=== PATIENT | male | born 1955 | race Caucasian/White ===

== ENCOUNTER 2023-10-27 08:28 | Emergency (ER) | payer OTHER ==
[~2023-10-27] VITALS: Ht 188 cm; Wt 101.6 kg
[~2023-10-27 08:28] MED LIST: ASPI81CH43 GT; PRIM50TA27 OR
[2023-10-27 08:57] VITALS: BP 150/86; PULSE 77; TEMP 97.6
[2023-10-27] MEDS: DexAMETHasone SOD PHOS 10MG/1ML VIAL INJ IM ONE (09:10)
[2023-10-27] MEDS: ALBUTEROL SULF 2.5 MG/0.5ML(0.5%) NEB SOLN NEB ONE (09:23)
[2023-10-27] MEDS: IPRATROPIUM BROM 0.5 MG/2.5ML INH SOL NEB ONE (09:23)
[2023-10-27 09:26] VITALS: RESP 16; O2SAT 95
[2023-10-27] MEDS ORDERED: AUG875T PO (09:55)
== END 2023-10-27 10:03 | disposition home or self-care (01) ==
LOC: ER 08:28
DX: J32.9 Chronic sinusitis, unspecified (principal); J44.9 Chronic obstructive pulmonary disease, unspecified
CPT/HCPCS: 71046; 94640; 96372; 99283; J1100; J7644

== ENCOUNTER 2024-04-09 13:31 | Inpatient (IN) | payer OTHER ==
[~2024-04-09] VITALS: Ht 188 cm; Wt 105.0 kg
[~2024-04-09 13:31] MED LIST changes: +AUG875T PO
[2024-04-09 14:28] LABS: Basophils # (auto) 0 10 ^3/uL (0-0.2); Eosinophils # (auto) 0.1 10 ^3/uL (0-0.8); Hemoglobin 13.7 g/dL (13.5-17.5); Monocytes # (auto) 0.3 10 ^3/uL (0-1.3); Neutrophils # (auto) 2.8 10 ^3/uL (1.6-8.6)
[2024-04-09 14:30] LABS: Basophils % (auto) 0.6 % (0.0-2.0); Eosinophils % (auto) 3.2 % (0.0-7.0); Hematocrit 37.5 % (41.0-53.0); Lymphocytes # (auto) 0.9 10 ^3/uL (0.4-5.4); Lymphocytes % (auto) 21.5 % (10.0-50.0); Mean Corpuscular Hemoglobin 35.3 pg (28.0-32.0); Mean Corpuscular Hgb Conc. 36.4 g/dL (32.0-36.0); Mean Corpuscular Volume 96.9 fL (80.0-100.0); Monocytes % (auto) 7.8 % (0.0-12.0); Neutrophils % (auto) 66.9 % (37.0-80.0); Nucleated Red Blood Cells % 0.2 %; Red Blood Cells 3.87 10^6/uL (4.5-5.90); Red Cell Distribution Width 13.2 % (11.8-14.3); White Blood Cell 4.2 10^3/uL (4.4-10.8)
[2024-04-09 14:37] LABS: Chloride 108 mmol/L (98-107); Potassium 4.2 mmol/L (3.5-5.1); Sodium 142 mmol/L (136-145)
[2024-04-09 14:38] LABS: Anion Gap 6 (5-15); Carbon Dioxide 28 mmol/L (20-30)
[2024-04-09 14:39] LABS: Calcium 9.6 mg/dL (8.7-10.4)
[2024-04-09 14:43] LABS: Glucose 93 mg/dL (74-106)
[2024-04-09 14:44] LABS: BUN/Creatinine Ratio 13.3 (10.0-20.0); Blood Urea Nitrogen 16 mg/dL (9-23)
[2024-04-09 15:02] VITALS: PULSE 63; RESP 16; O2SAT 95
[2024-04-09] MEDS ORDERED: MORPHINE SULFATE INJ 2 MG/ml SYRG IV PRN (16:15)
[2024-04-09] MEDS ORDERED: DOCUSATE SOD 100 MG CAP PO PRN (16:15)
[2024-04-09] MEDS ORDERED: ONDANSETRON HCL 4 MG/2 ML VIAL IV PRN (16:15)
[2024-04-09] MEDS ORDERED: NITROGLYCERIN 0.4 MG SL TAB SL PRN (16:15)
[2024-04-09 16:34] LABS: INR 0.97 (0.9-1.15); Prothrombin Time 10.3 sec (9.3-11.8)
[2024-04-09 20:32] VITALS: BP 127/47; PULSE 51; RESP 18; TEMP 97.5; O2SAT 96
[2024-04-09 20:34] VITALS: PULSE 51; RESP 18; O2SAT 96
[2024-04-09] MEDS ORDERED: APIX2.5T PO (21:07)
[2024-04-09] MEDS: PRIMIDONE 50 MG TAB PO SCH (21:13)
[2024-04-09 22:55] VITALS: BP 122/66; PULSE 65; RESP 18; TEMP 97.4; O2SAT 97
[2024-04-09 23:40] VITALS: BP 121/77; PULSE 63; RESP 16; TEMP 97.5; O2SAT 96
[2024-04-10] VITALS (8 sets, daily range): BP systolic 92–151; BP diastolic 57–88; PULSE 50–65; RESP 17–22; TEMP 97.3–98.2; O2SAT 92–97
[2024-04-10] MEDS ORDERED: FINA5TAB4 PO (02:51)
[2024-04-10] MEDS ORDERED: PROP60CA34 PO (02:51)
[2024-04-10] MEDS ORDERED: CAR25T PO (02:51)
[2024-04-10 05:55] LABS: Basophils # (auto) 0 10 ^3/uL (0-0.2); Eosinophils # (auto) 0.1 10 ^3/uL (0-0.8); Eosinophils % (auto) 3.5 % (0.0-7.0); Hematocrit 38.1 % (41.0-53.0); Hemoglobin 13.7 g/dL (13.5-17.5); Lymphocytes % (auto) 24.9 % (10.0-50.0); Mean Corpuscular Hemoglobin 35.2 pg (28.0-32.0); Mean Corpuscular Hgb Conc. 36.1 g/dL (32.0-36.0); Mean Corpuscular Volume 97.5 fL (80.0-100.0); Monocytes # (auto) 0.4 10 ^3/uL (0-1.3); Monocytes % (auto) 8.9 % (0.0-12.0); Neutrophils # (auto) 2.6 10 ^3/uL (1.6-8.6); Neutrophils % (auto) 61.7 % (37.0-80.0); Nucleated Red Blood Cells % 0.1 %; Red Blood Cells 3.91 10^6/uL (4.5-5.90); Red Cell Distribution Width 13.4 % (11.8-14.3); White Blood Cell 4.1 10^3/uL (4.4-10.8)
[2024-04-10 06:13] LABS: Alanine Aminotransferase 11 U/L (7-40); Albumin 3.7 g/dL (3.2-4.8); Alkaline Phosphatase 47 U/L (46-116); Anion Gap 6 (5-15); BUN/Creatinine Ratio 12.5 (10.0-20.0); Blood Urea Nitrogen 16 mg/dL (9-23); Calcium 9.3 mg/dL (8.7-10.4); Carbon Dioxide 29 mmol/L (20-30); Chloride 107 mmol/L (98-107); Glucose 111 mg/dL (74-106); Potassium 4.2 mmol/L (3.5-5.1); Sodium 142 mmol/L (136-145)
[2024-04-10 06:14] LABS: Aspartate Aminotransferase 9 U/L (13-40); Bilirubin, Total 0.7 mg/dL (0.2-1.0); Total Protein 6.3 g/dL (5.7-8.2)
[2024-04-10] MEDS ORDERED: ROPI2TAB31 PO (08:35)
[2024-04-10] MEDS ORDERED: ROPI3TAB PO (08:35)
[2024-04-10] MEDS ORDERED: ROPI1TAB78 PO (08:36)
[2024-04-10 10:54] LABS: Urine Bacteria None Seen /hpf (None Seen)
[2024-04-10 11:56] LABS: Urine Blood 3+ /uL (Negative); Urine Clarity Clear (Clear); Urine Color Light-Yellow (Yellow); Urine Protein, UAD 1+ (Negative); Urine Specific Gravity 1.011 (1.001-1.035); Urine Urobilinogen Normal (Negative); Urine WBC <1 /hpf (0 - 3); Urine pH 7.5 (5.0-9.0)
[2024-04-10] MEDS: PANTOPRAZOLE 40 MG TAB PO ONE (12:29)
[2024-04-10] MEDS: CARBIDOPA W LEVODOPA 25/100mg TABLET PO SCH ×3 (12:30→20:24)
[2024-04-10] MEDS: ROPINIROLE PO SCH (13:38)
[2024-04-10] MEDS: ROPINIROLE 1 MG PO SCH (17:00)
[2024-04-11 01:22] VITALS: BP 127/72; PULSE 48; RESP 17; TEMP 97.9; O2SAT 95
[2024-04-11 05:00] VITALS: BP 151/86; PULSE 51; RESP 17; TEMP 97.9; O2SAT 99
[2024-04-11] MEDS: PANTOPRAZOLE 40 MG TAB PO SCH (05:51)
[2024-04-11] MEDS: CARBIDOPA W LEVODOPA 25/100mg TABLET PO SCH ×2 (09:02→12:04)
[2024-04-11 09:15] VITALS: BP 150/80; PULSE 60; RESP 18; TEMP 98.3; O2SAT 97
[2024-04-11 11:55] VITALS: BP 132/39; PULSE 45; RESP 22; TEMP 98.7; O2SAT 95
[2024-04-11 13:02] VITALS: BP 133/75; PULSE 69; RESP 20; TEMP 98.3; O2SAT 98
[2024-04-11] MEDS ORDERED: CARBIDOPA W LEVODOPA 25/100mg TABLET PO SCH ×2 (16:00→20:00)
== END 2024-04-11 14:00 | disposition home or self-care (01) | DRG 914 ==
LOC: ER 13:31 → EDBD 13:31 → OVERFLOW 16:05 → CENTRAL 23:02
PROVIDERS: ADMIT Nurse Practitioner Family; ATTEND Internal Medicine
DX: S09.90XA Unspecified injury of head, initial encounter (principal); G89.29 Other chronic pain; G20.A1 Parkinson's disease without dyskinesia, without mention of fluctuations; J44.9 Chronic obstructive pulmonary disease, unspecified; I71.40 Abdominal aortic aneurysm, without rupture, unspecified; Z86.718 Personal history of other venous thrombosis and embolism; Z79.01 Long term (current) use of anticoagulants; W01.0XXA Fall on same level from slipping, tripping and stumbling without subsequent striking against object, initial encounter; Y93.01 Activity, walking, marching and hiking; Y92.098 Other place in other non-institutional residence as the place of occurrence of the external cause; Y99.8 Other external cause status
CPT/HCPCS: 36415; 70450; 71045; 80048; 80053; 81001; 84484; 85025; 85610; G0378